=== PATIENT | female | born 1985 | race American Indian/Alaskan Native ===

== ENCOUNTER 2017-03-26 20:08 | Emergency (ER) | payer MEDICAID ==
[2017-03-26 21:13] LABS: Basophils % (Auto) 0.3 % (0.0-1.8); Eosinophils % (Auto) 0.3 % (0.0-4.3); Hematocrit 39.9 % (30.3-42.9); Mean Corpuscular HGB Conc 35 % (30-34); Mean Corpuscular Hemoglobin 31 pg (28-32); Mean Corpuscular Volume 89 fl (79-97); Platelet Count 158 K/mm3 (140-440); Red Blood Count 4.48 M/mm3 (3.65-5.03); Red Cell Distribution Width 12.2 % (13.2-15.2); White Blood Count 8.4 K/mm3 (4.5-11.0)
[2017-03-26 21:33] LABS: Albumin 4.2 g/dL (3.9-5); Albumin/Globulin Ratio 1.2 %; Alkaline Phosphatase 72 units/L (35-129); Anion Gap 19 mmol/L; BUN/Creatinine Ratio 16.66; Blood Urea Nitrogen 10 mg/dL (7-17); Calcium 9.4 mg/dL (8.4-10.2); Carbon Dioxide 25 mmol/L (22-30); Glucose 102 mg/dL (65-100); Potassium 3.9 mmol/L (3.6-5.0); Sodium 140 mmol/L (137-145); Total Protein 7.8 g/dL (6.3-8.2)
[2017-03-26 21:34] LABS: Alanine Aminotransferase 22 units/L (7-56)
[2017-03-26 22:18] LABS: Bilirubin,Urine NEG (Negative); Blood,Urine NEG (Negative); Ketones,Urine NEG (Negative); Leukocyte Esterase,Urine NEG (Negative); Mucus,Urine FEW /HPF; Nitrite,Urine NEG (Negative); Protein,Urine <15 mg/dL mg/dL (Negative); Urobilinogen,Urine < 2.0 mg/dL (<2.0)
--- NOTE | 2017-03-27 02:41 | Emergency Department Report ---
ED Female HPI - General Chief complaint: Abdominal Pain Stated complaint: ABD PAIN Time Seen by Provider: 03/27/17 02:30 Source: patient Mode of arrival: Wheelchair Limitations: No Limitations - History of Present Illness Initial comments: This is a 31-year-old female nontoxic, well nourished in appearance, no acute signs of distress that presents to the ED with boyfriend as a patient as well complaining of lower abdominal pain, vaginal discharge, nausea, and burning urination 4 days. Patient describes vaginal discharge as white thick colored. Patient stated lower back pain as aching with level of 4/10. Patient denies any fever, chills, headache, stiff neck, nausea, vomiting, chest pain or short of breath. Patient stated last week she and her boyfriend had sexual intercourse with another female and the female yesterday called the patient and stated she has gonorrhea and chlamydia. Patient today states she wants to be treated for gonorrhea and chlamydia due to that purposes. Patient denies any drug allergies. Denies past medical history. MD Complaint: vaginal discharge, dysuria, pelvic pain, possible STD -: Gradual, days(s) (4) Radiation: non-radiating Severity: mild Severity scale (0 -10): 4 Quality: cramping, aching Consistency: constant Improves with: none Worsens with: none Are you Now?: Yes Last Menstrual Period: 02/26/17 EDC: 12/03/17 Associated Symptoms: vaginal discharge, abdominal pain, nausea/vomiting, dysuria. denies: vaginal bleeding, fever/chills, headaches, loss of appetite, hematuria, rash, seizure, shortness of breath, syncope, weakness - Related Data Sexually active: Yes Allergies Allergy/AdvReac Type Severity Reaction Status Date / Time No Known Allergies Allergy Verified 03/26/17 20:36 ED Review of Systems ROS: Stated complaint: ABD PAIN Other details as noted in HPI Constitutional: denies: chills, fever Eyes: denies: eye pain, eye discharge, vision change ENT: denies: ear pain, throat pain Respiratory: denies: cough, shortness of breath, wheezing Cardiovascular: denies: chest pain, palpitations Endocrine: no symptoms reported Gastrointestinal: denies: abdominal pain, nausea, diarrhea Genitourinary: denies: urgency, dysuria, discharge Musculoskeletal: denies: back pain, joint swelling, arthralgia Skin: denies: rash, lesions Neurological: denies: headache, weakness, paresthesias Psychiatric: denies: anxiety, depression Hematological/Lymphatic: denies: easy bleeding, easy bruising ED Past Medical Hx - Past Medical History Previous Medical History?: No - Surgical History Past Surgical History?: No - Social History Smoking Status: Never Smoker Substance Use Type: Alcohol ED Physical Exam - General Limitations: No Limitations General appearance: alert, in no apparent distress - Head Head exam: Present: atraumatic, normocephalic, normal inspection - Eye Eye exam: Present: normal appearance, PERRL, EOMI. Absent: scleral icterus, conjunctival injection, nystagmus, periorbital swelling, periorbital tenderness Pupils: Present: normal accommodation - ENT ENT exam: Present: normal exam, normal orophraynx, mucous membranes moist, TM's normal bilaterally, normal external ear exam - Neck Neck exam: Present: normal inspection, full ROM. Absent: tenderness, meningismus, lymphadenopathy, thyromegaly - Respiratory Respiratory exam: Present: normal lung sounds bilaterally. Absent: respiratory distress, wheezes, rales, rhonchi, stridor, chest wall tenderness, accessory muscle use, decreased breath sounds, prolonged expiratory - Cardiovascular Cardiovascular Exam: Present: regular rate, normal rhythm, normal heart sounds. Absent: bradycardia, tachycardia, irregular rhythm, systolic murmur, diastolic murmur, rubs, gallop - GI/Abdominal GI/Abdominal exam: Present: soft, normal bowel sounds. Absent: distended, tenderness, guarding, rebound, rigid, diminished bowel sounds - Rectal Rectal exam: Present: deferred - External exam: Present: other (patient refuses exam) Speculum exam: Present: other (patient refuses exam) Bi-manual exam: Present: other (patient refused exam) - Extremities Exam Extremities exam: Present: normal inspection, full ROM, normal capillary refill. Absent: tenderness, pedal edema, joint swelling, calf tenderness - Back Exam Back exam: Present: normal inspection, full ROM. Absent: tenderness, CVA tenderness (R), CVA tenderness (L), muscle spasm, paraspinal tenderness, vertebral tenderness, rash noted - Neurological Exam Neurological exam: Present: alert, oriented X3, CN II-XII intact, normal gait, reflexes normal - Psychiatric Psychiatric exam: Present: normal affect, normal mood - Skin Skin exam: Present: warm, dry, intact, normal color. Absent: rash - Other Other exam information: Patient refused exam. Patient states she is wants to be treated empirically for gonorrhea/chlamydia. ED Course Vital Signs 03/26/17 03/27/17 20:36 00:48 Temperature 98.9 F 98.6 F Pulse Rate 66 67 Respiratory 20 16 Rate Blood Pressure 124/79 119/77 O2 Sat by Pulse 100 98 Oximetry - Reevaluation(s) Reevaluation #1: 03/27/17 02:[address] scan of abdomen/pelvis or exam. Patient stated she just wants to be treated empirically for gonorrhea and chlamydia. I instructed the importance of examination and CT scan the patient still stated she does not want to be tested or examined. Patient is able speak full sentences with no signs of distress noted. ED Medical Decision Making - Lab Data Result diagrams: 03/26/17 20:56 03/26/17 20:56 - Medical Decision Making ED course; this is a 31-year-old female that presents with possible STD exposure. Patient refused CT scan or examination. I struck the patient of my concerns and the importance of having a CT scan and examination but the patient stated she does not want and just wants to be treated empirically for gonorrhea and chlamydia. Patient is treated empirically with Rocephin and azithromycin in the ED. Patient was instructed to follow-up with her primary care doctor/associate producer in 3-5 days or if symptoms worsen or continue return to emergency room as soon as possible. Critical care attestation.: If time is entered above; I have spent that time in minutes in the direct care of this critically ill patient, excluding procedure time. ED Disposition Clinical Impression: Possible exposure to STD Disposition: DC-01 TO HOME OR SELFCARE Is pt being admited?: No Does the pt Need Aspirin: No Condition: Stable Instructions: Safe Sex (ED) Additional Instructions: Follow-up with her primary care doctor/associate producer in 3-5 days or if symptoms worsen and continue return to the emergency room rest was possible. Referrals: PRIMARY MD DOLORES [Referring] - 3-5 Days EDDIE KULKARNI MD [Staff Physician] - 3-5 Days [facility] [Outside] - 3-5 Days [facility] [Outside] - 3-5 Days Forms: Work/School Release Form(ED)
[2017-03-27] MEDS ORDERED: ZITHROMAX PO ONE (03:23)
[2017-03-27] MEDS ORDERED: XYLOCAINE 1% MPF 5 mL INFILTRATI ONE (03:23)
[2017-03-27] MEDS ORDERED: ROCEPHIN IM ONE (03:23)
[2017-03-27 04:58] VITALS: BP 108/70
== END 2017-03-27 04:05 | disposition home or self-care (01) ==
LOC: ED 20:08
DX: R10.30 Lower abdominal pain, unspecified (principal); N89.8 Other specified noninflammatory disorders of vagina; R11.0 Nausea
CPT/HCPCS: 36415; 80053; 81001; 84703; 85025; 96372; 99284; J0696